=== PATIENT | female | born 1975 | race Caucasian/White ===

== ENCOUNTER 2021-06-30 16:34 | Emergency (ER) | payer OTHER, BC ==
[2021-06-30 16:53] VITALS: BP 129/80; PULSE 89; TEMP 97.9; BMI 34.7
[2021-06-30] MEDS ORDERED: KETOROLAC TROMETHAMINE 60 MG/2 ML VIAL IM ONE (17:32)
[2021-06-30] MEDS ORDERED: KETOROLAC TROMETHAMINE 60 MG/2 ML VIAL ONE (18:16)
== END 2021-06-30 19:59 | disposition home or self-care (01) ==
LOC: JER 16:34
PROC: 3E0233Z Introduction of Anti-inflammatory into Muscle, Percutaneous Approach (ICD-10-PCS; principal; 2021-06-30)
DX: S09.90XA Unspecified injury of head, initial encounter (principal); M79.10 Myalgia, unspecified site; W01.198A Fall on same level from slipping, tripping and stumbling with subsequent striking against other object, initial encounter
CPT/HCPCS: 70450-TC; 99284-25

== ENCOUNTER 2022-05-03 16:09 | Emergency (ER) | payer BC, OTHER ==
[2022-05-03 16:32] VITALS: BP 150/84; PULSE 88; RESP 18; TEMP 97.7; BMI 32.7
[2022-05-03] MEDS ORDERED: KETOROLAC TROMETHAMINE 30 MG/1 ML VIAL IM ONE (17:22)
[2022-05-03] MEDS ORDERED: KETOROLAC TROMETHAMINE 30 MG/1 ML VIAL ONE (17:29)
== END 2022-05-03 19:02 | disposition home or self-care (01) ==
LOC: JER 16:09
PROC: 3E0233Z Introduction of Anti-inflammatory into Muscle, Percutaneous Approach (ICD-10-PCS; principal; 2022-05-03)
DX: B34.9 Viral infection, unspecified (principal)
CPT/HCPCS: 0241U-QW; 99283-25

== ENCOUNTER 2022-05-30 20:22 | Emergency (ER) | payer BC ==
[2022-05-30 20:39] VITALS: BP 160/82; PULSE 96; RESP 20; TEMP 98.4; BMI 32.9
[2022-05-30] MEDS ORDERED: KETOROLAC TROMETHAMINE 30 MG/1 ML VIAL IM ONE (21:06)
== END 2022-05-30 21:52 | disposition home or self-care (01) ==
LOC: JER 20:22
DX: J06.9 Acute upper respiratory infection, unspecified (principal)
CPT/HCPCS: 0241U-QW; 99283-25

== ENCOUNTER 2022-11-22 17:18 | Emergency (ER) | payer BC ==
[2022-11-22 17:25] VITALS: BP 143/77; PULSE 105; RESP 18; TEMP 99.1; BMI 33.6
[2022-11-22] MEDS ORDERED: ACETAMINOPHEN 500 MG TABLET (FP) PO ONE (18:39)
[2022-11-22] MEDS ORDERED: DEXAMETHASONE SOD PHOSPHATE 10 MG/1 ML VIAL IM ONE (18:40)
[2022-11-22 18:41] LABS: THROAT:GRP A STREP DETECTED (NOTDETECTED)
[2022-11-22] MEDS ORDERED: AMOXICILLIN 500 MG CAPSULE (FP) PO ONE (18:48)
[2022-11-22] MEDS ORDERED: AMOXICILLIN 250 MG CAPSULE ONE (18:54)
[2022-11-22] MEDS ORDERED: ACETAMINOPHEN 500 MG TABLET (FP) ONE (18:54)
[2022-11-22] MEDS ORDERED: DEXAMETHASONE SOD PHOSPHATE 10 MG/1 ML VIAL ONE (18:54)
== END 2022-11-22 19:05 | disposition home or self-care (01) ==
LOC: JERFT 17:18
PROC: 3E023GC Introduction of Other Therapeutic Substance into Muscle, Percutaneous Approach (ICD-10-PCS; principal; 2022-11-22)
DX: R50.9 Fever, unspecified (principal); R51.9 Headache, unspecified; R09.81 Nasal congestion; R05.9 Cough, unspecified; R07.0 Pain in throat; M79.10 Myalgia, unspecified site; J02.0 Streptococcal pharyngitis; Z20.822 Contact with and (suspected) exposure to COVID-19
CPT/HCPCS: 0241U-QW; 71046-TC-FY; 87651; 99284-25; J1100

== ENCOUNTER 2023-06-23 19:34 | Emergency (ER) | payer BC ==
[2023-06-23 19:53] VITALS: BP 155/86; PULSE 91; RESP 20; TEMP 97.5; BMI 34.7
== END 2023-06-23 22:53 | disposition home or self-care (01) ==
LOC: JERFT 19:34
DX: J06.9 Acute upper respiratory infection, unspecified (principal); J10.1 Influenza due to other identified influenza virus with other respiratory manifestations; R05.9 Cough, unspecified; R09.81 Nasal congestion; R50.9 Fever, unspecified; M79.10 Myalgia, unspecified site; R53.81 Other malaise; R53.83 Other fatigue; R07.0 Pain in throat; R11.10 Vomiting, unspecified; H93.90 Unspecified disorder of ear, unspecified ear; Z20.822 Contact with and (suspected) exposure to COVID-19
CPT/HCPCS: 0241U-QW; 99283-25

== ENCOUNTER 2023-08-08 16:51 | Emergency (ER) | payer BC ==
[2023-08-08 17:01] VITALS: BP 116/76; PULSE 94; RESP 18; TEMP 98.5; BMI 34.7
[2023-08-08] MEDS ORDERED: AZITHROMYCIN 250 MG TABLET PO ONE (19:43)
[2023-08-08] MEDS ORDERED: AZITHROMYCIN 500 MG TABLET ONE (19:59)
== END 2023-08-08 20:01 | disposition home or self-care (01) ==
LOC: JER 16:51 → JERFT 16:51
DX: R05.9 Cough, unspecified (principal); R09.81 Nasal congestion; Z20.822 Contact with and (suspected) exposure to COVID-19
CPT/HCPCS: 0241U-QW; 71046-TC-FY; 93005; 93010; 99285-25

== ENCOUNTER 2023-11-14 18:08 | Emergency (ER) | payer BC ==
[2023-11-14 18:14] VITALS: BP 144/77; PULSE 81; RESP 18; TEMP 97; BMI 34.4
[2023-11-14] MEDS ORDERED: IBUPROFEN 600 MG TABLET (FP) PO ONE (18:44)
[2023-11-14] MEDS: IBUPROFEN 600 MG TABLET (FP) PO ONE (18:46)
== END 2023-11-14 19:48 | disposition home or self-care (01) ==
LOC: JERFT 18:08
DX: S80.01XA Contusion of right knee, initial encounter (principal); S50.01XA Contusion of right elbow, initial encounter; W01.198A Fall on same level from slipping, tripping and stumbling with subsequent striking against other object, initial encounter; X50.1XXA Overexertion from prolonged static or awkward postures, initial encounter
CPT/HCPCS: 73070-TC-RT-FY; 73560-TC-RT-FY; 99284-25

== ENCOUNTER 2023-11-17 11:10 | Emergency (ER) | payer OTHER, BC ==
[2023-11-17 11:24] VITALS: BP 155/87; PULSE 80; RESP 19; TEMP 97.7; BMI 34.4
[2023-11-17] MEDS ORDERED: KETOROLAC TROMETHAMINE 30 MG/1 ML VIAL ONE (12:27)
[2023-11-17] MEDS ORDERED: ACETAMINOPHEN 500 MG TABLET (FP) ONE (12:27)
[2023-11-17] MEDS: ACETAMINOPHEN 500 MG TABLET (FP) PO ONE (12:32)
[2023-11-17] MEDS: KETOROLAC TROMETHAMINE 30 MG/1 ML VIAL IM ONE (12:32)
== END 2023-11-17 12:57 | disposition home or self-care (01) ==
LOC: JERFT 11:10
PROC: 3E0133Z Introduction of Anti-inflammatory into Subcutaneous Tissue, Percutaneous Approach (ICD-10-PCS; principal; 2023-11-17)
DX: M25.511 Pain in right shoulder (principal); M79.601 Pain in right arm; M25.561 Pain in right knee; M25.562 Pain in left knee; W19.XXXA Unspecified fall, initial encounter
CPT/HCPCS: 99284-25

== ENCOUNTER 2023-11-24 21:41 | Emergency (ER) | payer OTHER, BC ==
[2023-11-24 21:45] VITALS: BP 148/87; PULSE 88; RESP 18; TEMP 97.9; BMI 34.0
[2023-11-24] MEDS ORDERED: METHOCARBAMOL 500 MG TABLET ONE (22:14)
[2023-11-24] MEDS ORDERED: KETOROLAC TROMETHAMINE 30 MG/1 ML VIAL ONE (22:14)
[2023-11-24] MEDS: KETOROLAC TROMETHAMINE 30 MG/1 ML VIAL IM ONE (22:19)
[2023-11-24] MEDS: METHOCARBAMOL 500 MG TABLET PO ONE (22:19)
== END 2023-11-24 22:40 | disposition home or self-care (01) ==
LOC: JERFT 21:41
PROC: 3E0233Z Introduction of Anti-inflammatory into Muscle, Percutaneous Approach (ICD-10-PCS; principal; 2023-11-24)
DX: M25.561 Pain in right knee (principal); M25.562 Pain in left knee; G89.29 Other chronic pain
CPT/HCPCS: 99284-25